=== PATIENT | female | born 1940 | race Caucasian/White ===

== ENCOUNTER 2017-06-13 18:15 | Observation (INO) ==
--- NOTE | 2017-06-13 18:42 | Emergency Department Note ---
Disposition Clinical Impression: Atrial fibrillation with RVR Chest pain Qualifiers: Chest pain type: precordial pain Qualified Code(s): R07.2 - Precordial pain Disposition: Admitted As Inpatient Condition: Good Referrals: Augustin Tsang MD [Primary Care Provider] - Forms: ED Satisfaction Letter Time of Disposition: 22:08 Chest Pain HPI - General Chief Complaint: ED Chest Pain Stated Complaint: pain across chest Time Seen by Provider: 06/13/17 18:30 Source: patient, EMS Limitations: no limitations - History of Present Illness HPI Narrative: 76-year-old female developed some discomfort in her throat that she described as a sore throat about 3 or 4 hours ago. It gradually moved down into her chest and shoulders bilaterally, more of a tightness. No shortness of breath. No palpitations. No nausea or diaphoresis. She eventually called EMS. EMS gave her nitroglycerin sublingual. She states the pain was a level VIII and is now a level I or 2. Pt complaint: chest pain Onset (ago): hour(s) Duration: constant Onset: during rest (4) Pain Location: substernal Severity scale (1-10): 3 Quality: tightness Pain Radiation: RUE (Shoulder), LUE, neck Improves with: nitroglycerin (Shoulder) Worsens with: nothing Context: history of DVT/PE Associated symptoms: Denies: nausea, vomiting, diaphoresis, dyspnea, palpitations, fever, cough Treatments prior to arrival chest pain: aspirin, other (Nitroglycerin) - Related Data Home Medications Medication Instructions Recorded Confirmed Lisinopril 20 mg PO DAILY 04/18/15 06/13/17 No Known Home Drugs 04/18/15 04/18/15 Omeprazole 20 mg PO DAILY 04/18/15 04/18/15 Warfarin 5 mg PO DAILY 04/18/15 06/13/17 Allergies Allergy/AdvReac Type Severity Reaction Status Date / Time Estrogens Allergy See Verified 04/18/15 10:41 Comments pseudoephedrine Allergy Hives Verified 04/18/15 10:41 [From Actifed] triprolidine [From Actifed] Allergy Hives Verified 04/18/15 10:41 azithromycin [From Zithromax] AdvReac Nausea Verified 04/18/15 10:41 All systems ED: reviewed and negative except as stated. Constitutional: Denies: fever, chills Eyes: Denies: eye discharge ENT ED: Reports: throat pain. Denies: ear pain Cardiovascular: Reports: chest pain. Denies: palpitations Respiratory: Denies: cough, dyspnea Gastrointestinal: Denies: abdominal pain, nausea, vomiting Genitourinary: Denies: urgency, dysuria, frequency Musculoskeletal: Reports: neck pain. Denies: back pain Integumentary: Denies: rash Chest Pain PMH - Past Medical History Medical history: Reports: arthritis, cardiomyopathy, CVA, DVT, GERD, hypertension, pulmonary embolus Surgical history: Reports: cholecystectomy, other Psychiatric history: Reports: no psych history - Social History Smoking Status: Never smoker Alcohol use: Reports: none Drug use: Reports: none Physical Exam - General Limitations: no limitations General appearance: alert, in no apparent distress - Head Head exam: atraumatic, normocephalic - Eye Eye exam: Present: PERRL, EOMI. Absent: scleral icterus, conjunctival injection - ENT ENT exam: normal oropharynx, mucous membranes moist - Neck Neck exam: Present: normal inspection, full ROM, trachea midline. Absent: tenderness, lymphadenopathy - Chest Chest inspection: Present: normal inspection, symmetric chest wall rise - Respiratory Respiratory exam: Present: normal lung sounds bilaterally. Absent: respiratory distress, wheezes - Cardiovascular Cardiovascular exam: Present: tachycardia, irregular rhythm. Absent: systolic murmur, diastolic murmur, gallop - Abdominal Exam Abdominal exam: Present: soft, Non-Tender, normal bowel sounds. Absent: organomegaly, mass - Extremities Exam Extremities exam: Present: normal inspection, full ROM, normal capillary refill. Absent: pedal edema, calf tenderness - Back Exam Back exam: Absent: CVA tenderness (R), CVA tenderness (L) - Neurological Exam Neurological exam: Present: alert, oriented X3. Absent: motor sensory deficit - Psychiatric Psychiatric exam: Present: normal affect, normal mood - Skin Skin exam: Present: warm, dry, intact, normal color Course - Reevaluation(s) Reevaluation #1: HR is down to 115. BP is 117/70. No chest pain. Time: 20:07 Reevaluation #2: Heart rate is still trending around 110 to 1:15. Her blood pressure is stable. She has been re-bolused with 15 mg of Cardizem and her drips been increased to 10 mg. I discussed admission with Dr. Cm and the patient. The patient's agreeable. Dr. Cm has accepted for admission. Per his request she will be given digoxin 0.25 mg IV. Time: 22:06 Vital Signs Temperature 98 F 06/13/17 18:19 Pulse Rate 147 06/13/17 18:19 Respiratory Rate 24 06/13/17 18:19 Blood Pressure 125/73 06/13/17 18:19 O2 Sat by Pulse Oximetry 90 06/13/17 18:19 Temperature 98 F 06/13/17 18:19 Pulse Rate 102 06/13/17 21:58 Respiratory Rate 16 06/13/17 21:58 Blood Pressure 98/61 06/13/17 21:58 O2 Sat by Pulse Oximetry 98 06/13/17 21:58 Oxygen Delivery Oxygen Delivery Nasal Cannula Chest Pain - MDM Narrative Medical decision making narrative: Frontal includes but is not limited to unstable angina, myocardial infarction, atrial fibrillation with RVR, atrial flutter with RVR, SVT, pulmonary embolus, congestive heart failure. The patient in atrial fibrillation with RVR. There are no old EKGs available for comparison. The patient does not remember any history of atrial fibrillation in the past. She is anticoagulated and is supratherapeutic. I believe she is on the Coumadin for a previous pulmonary embolus. She will be admitted, monitored, the Cardizem will be continued. - Lab Data Lab results reviewed: Yes I reviewed the patient's lab results. Result diagrams: 06/13/17 18:57 06/13/17 18:57 Lab Results 06/13/17 06/13/17 06/13/17 Range/Units 18:57 18:57 18:57 WBC 9.7 (4.3-11.1) K/mcL RBC 4.62 (3.82-4.97) M/mcL Hgb 12.2 (11.5-15.4) g/dL Hct 39.1 (35.3-44.9) % MCV 84.6 (83.0-100.0) fL MCH 26.4 L (28.0-33.3) pg MCHC 31.2 L (31.6-35.5) g/dL RDW 18.4 H (11.5-14.5) % Plt Count 41 L (140-400) K/mcL MPV 11.9 (9.4-12.4) fL Immature Gran % 0.1 (0-4) % Seg Neutrophils % 81.6 % Lymphocytes % 10.8 % Monocytes % 6.8 % Eosinophils % 0.6 % Basophils % 0.1 % Neutrophils # 7.9 (1.6-8.9) K/mcL Lymphocytes # 1.0 (0.6-4.6) K/mcL Monocytes # 0.7 (0.0-1.3) K/mcL Eosinophils # 0.1 (0.0-0.6) K/mcL Basophils # 0.0 (0.0-0.2) K/mcL Platelet Estimate Decreased L (Normal) PT 38.6 H (9.4-12.1) Seconds INR 3.5 D-Dimer (0-500) ng/mLFEU Sodium 138 (136-145) mEq/L Potassium 4.5 (3.5-4.5) mEq/L Chloride 108 (98-109) mEq/L Carbon Dioxide 21 (19-29) mEq/L BUN 34 H (7-20) mg/dL Creatinine 1.31 H (0.57-1.11) mg/dL Est GFR ( Amer) 48 L (> 60) Est GFR (Non-Af Amer) 39 L (> 60) BUN/Creatinine Ratio 26 (6-26) Glucose 112 H (70-99) mg/dL Calculated Osmolality 294 (280-300) Calcium 9.5 (8.6-10.8) mg/dL Total Bilirubin 0.3 (0.2-1.2) mg/dL AST 22 (5-34) Units/L ALT 20 (0-55) Units/L Alkaline Phosphatase 71 (38-126) Units/L Troponin I (0-0.03) ng/mL B-Natriuretic Peptide (0-100) pg/mL Serum Total Protein 7.4 (6.0-8.3) g/dL Albumin 3.6 (3.5-5.0) g/dL Globulin 3.8 H (2.4-3.5) g/dL Albumin/Globulin Ratio 0.9 L (1.1-2.2) 06/13/17 06/13/17 06/13/17 Range/Units 18:57 18:57 18:57 WBC (4.3-11.1) K/mcL RBC (3.82-4.97) M/mcL Hgb (11.5-15.4) g/dL Hct (35.3-44.9) % MCV (83.0-100.0) fL MCH (28.0-33.3) pg MCHC (31.6-35.5) g/dL RDW (11.5-14.5) % Plt Count (140-400) K/mcL MPV (9.4-12.4) fL Immature Gran % (0-4) % Seg Neutrophils % % Lymphocytes % % Monocytes % % Eosinophils % % Basophils % % Neutrophils # (1.6-8.9) K/mcL Lymphocytes # (0.6-4.6) K/mcL Monocytes # (0.0-1.3) K/mcL Eosinophils # (0.0-0.6) K/mcL Basophils # (0.0-0.2) K/mcL Platelet Estimate (Normal) PT (9.4-12.1) Seconds INR D-Dimer 466 (0-500) ng/mLFEU Sodium (136-145) mEq/L Potassium (3.5-4.5) mEq/L Chloride (98-109) mEq/L Carbon Dioxide (19-29) mEq/L BUN (7-20) mg/dL Creatinine (0.57-1.11) mg/dL Est GFR ( Amer) (> 60) Est GFR (Non-Af Amer) (> 60) BUN/Creatinine Ratio (6-26) Glucose (70-99) mg/dL Calculated Osmolality (280-300) Calcium (8.6-10.8) mg/dL Total Bilirubin (0.2-1.2) mg/dL AST (5-34) Units/L ALT (0-55) Units/L Alkaline Phosphatase (38-126) Units/L Troponin I 0.01 (0-0.03) ng/mL B-Natriuretic Peptide 504 H (0-100) pg/mL Serum Total Protein (6.0-8.3) g/dL Albumin (3.5-5.0) g/dL Globulin (2.4-3.5) g/dL Albumin/Globulin Ratio (1.1-2.2) 06/13/17 Range/Units 20:50 WBC (4.3-11.1) K/mcL RBC (3.82-4.97) M/mcL Hgb (11.5-15.4) g/dL Hct (35.3-44.9) % MCV (83.0-100.0) fL MCH (28.0-33.3) pg MCHC (31.6-35.5) g/dL RDW (11.5-14.5) % Plt Count (140-400) K/mcL MPV (9.4-12.4) fL Immature Gran % (0-4) % Seg Neutrophils % % Lymphocytes % % Monocytes % % Eosinophils % % Basophils % % Neutrophils # (1.6-8.9) K/mcL Lymphocytes # (0.6-4.6) K/mcL Monocytes # (0.0-1.3) K/mcL Eosinophils # (0.0-0.6) K/mcL Basophils # (0.0-0.2) K/mcL Platelet Estimate (Normal) PT (9.4-12.1) Seconds INR D-Dimer (0-500) ng/mLFEU Sodium (136-145) mEq/L Potassium (3.5-4.5) mEq/L Chloride (98-109) mEq/L Carbon Dioxide (19-29) mEq/L BUN (7-20) mg/dL Creatinine (0.57-1.11) mg/dL Est GFR ( Amer) (> 60) Est GFR (Non-Af Amer) (> 60) BUN/Creatinine Ratio (6-26) Glucose (70-99) mg/dL Calculated Osmolality (280-300) Calcium (8.6-10.8) mg/dL Total Bilirubin (0.2-1.2) mg/dL AST (5-34) Units/L ALT (0-55) Units/L Alkaline Phosphatase (38-126) Units/L Troponin I 0.01 (0-0.03) ng/mL B-Natriuretic Peptide (0-100) pg/mL Serum Total Protein (6.0-8.3) g/dL Albumin (3.5-5.0) g/dL Globulin (2.4-3.5) g/dL Albumin/Globulin Ratio (1.1-2.2) - Radiology Data Radiology results reviewed: Yes I reviewed the patient's radiology results. Impressions Chest X-Ray 06/13/17 18:37 IMPRESSION: The previously noted hiatal hernia is significantly larger. Cardiomegaly. Otherwise, stable chest D/ / Armani Wyman MD / Armani Wyman MD Interpreting Provider: Armani Wyman MD - EKG Data EKG attestation: Yes I reviewed and interpreted this EKG. EKG results narrative: Atrial fibrillation with RVR, rate of 125, right axis deviation, poor R-wave progression, cannot rule out age indeterminate anterior infarct. Nonspecific ST -T changes. Rhythm strip shows atrial fibrillation with a rate of 125, QRS 89 ms with no other ectopy as interpreted by me. No old EKG available for comparison. Critical Care Time Critical Care Time: Yes Total Critical Care Time: 30 Attestation: Rectal care time includes my initial evaluation, reassessment, review of laboratory, EKG, old EKG, chest x-ray. It includes consultation with the hospitalist for admission. It includes consultation with the family and patient at the bedside. No procedures were performed.
[2017-06-13 19:04] LABS: Basophils % 0.1 %; Eosinophils # 0.1 K/mcL (0.0-0.6); Eosinophils % 0.6 %; Hematocrit 39.1 % (35.3-44.9); Hemoglobin 12.2 g/dL (11.5-15.4); Immature Granulocytes % 0.1 % (0-4); Lymphocytes % 10.8 %; Mean Corpuscular HGB Conc 31.2 g/dL (31.6-35.5); Mean Corpuscular Hemoglobin 26.4 pg (28.0-33.3); Mean Corpuscular Volume 84.6 fL (83.0-100.0); Mean Platelet Volume 11.9 fL (9.4-12.4); Monocytes # 0.7 K/mcL (0.0-1.3); Monocytes % 6.8 %; Neutrophils # 7.9 K/mcL (1.6-8.9); Red Blood Count 4.62 M/mcL (3.82-4.97); Red Cell Distribution Width 18.4 % (11.5-14.5); Segmented Neutrophils % 81.6 %
[2017-06-13 19:06] LABS: Platelet Count 41 K/mcL (140-400)
[2017-06-13 19:13] LABS: INR 3.5; Prothrombin Time 38.6 Seconds (9.4-12.1)
[2017-06-13 19:25] LABS: Albumin 3.6 g/dL (3.5-5.0); Albumin/Globulin Ratio 0.9 (1.1-2.2); Bilirubin,Total 0.3 mg/dL (0.2-1.2); Calcium 9.5 mg/dL (8.6-10.8); Globulin 3.8 g/dL (2.4-3.5); Potassium 4.5 mEq/L (3.5-4.5); Total Protein 7.4 g/dL (6.0-8.3)
[2017-06-13 19:54] LABS: Platelet Estimate Decreased (Normal)
[2017-06-13] MEDS ORDERED: *HR* Digoxin 0.5 MG/2 ML AMPUL IVP ONE (22:06)
[2017-06-14] MEDS ORDERED: Ondansetron ODT 4 MG TAB.RAPDIS SL PRN (00:04)
[2017-06-14] MEDS ORDERED: Naloxone 0.4 MG/ML INJ IVP PRN (00:04)
[2017-06-14] MEDS ORDERED: traZODone 50 MG TABLET PO PRN (01:22)
[2017-06-14 06:28] LABS: INR 4.1
[2017-06-14 06:44] LABS: Prothrombin Time 45.4 Seconds (9.4-12.1)
[2017-06-14] MEDS: Acetaminophen 325 MG TABLET PO PRN ×2 (09:49→15:46)
--- NOTE | 2017-06-14 15:24 | Internal Med History&Physical ---
Date of Encounter: 06/14/17 Time of Encounter: 14:50 Assessment and Plan (1) Atrial fibrillation with RVR Current visit: Yes Status: Acute She was started on Cardizem drip through emergency room. Lanoxin was also started. Her ventricular rate has slowed so the Cardizem drip will be discontinued. Echocardiogram will be ordered. TSH will be checked (2) Azotemia Current visit: Yes Status: Acute New since 12/06/2016 when estimated GFR was greater than 60. We will give IV fluids and recheck labs in a.m. (3) Chest pain Current visit: Yes Status: Acute Repeat cardiac enzymes were ordered through emergency room. EKG showed low voltage, no evidence of ischemia. There appeared to be possible old anterior infarct Qualifiers: Chest pain type: precordial pain Qualified Code(s): R07.2 - Precordial pain Internal Medicine - H&P: HPI Chief complaint: Chest and neck discomfort Admitted From: Home Plans for Post Hospital Care: Home History of present illness: Ms. Velazco is a 76 year old female who came to the emergency room stating she had sudden onset of discomfort in her throat at approximately 1430 while at leisure. Over the next few minutes to hours the discomfort radiated to her neck , shoulder, jaw and chest area. She describes the chest discomfort as a "squeezing" sensation. She called her daughter who instructed her to call the squad. She was brought to emergency room and was found to have AF with RVR. She was started on a Cardizem drip and admitted to [facility] for ongoing care needs. She denies known previous episodes of atrial fibrillation. 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 She has been maintained on Coumadin. She was told in the past she had a "skipped beat" does not know details. She denies UT or heart failure. She states her chest and neck discomfort have essentially resolved. Past Med Surg Social Fam HX - Past Medical History Medical history: arthritis, cardiomyopathy, CVA, DVT, GERD, hypertension, pulmonary embolus Psychiatric history: no psych history - Past Surgical History Surgical History: cholecystectomy, other - Social History Smoking Status: Never smoker Smokeless Tobacco Status: No Alcohol use: none Drug use: none - Family History Mother Living Status: Hx Family Cardiac Disorders: Yes Father Living Status: Hx Family Cancer: Yes Internal Medicine - H&P: Meds Lisinopril [Zestril] 10 mg PO QDPC 06/14/17 [History] Mycophenolate Mofetil [Cellcept] 500 mg PO TID 06/14/17 [History] Omeprazole [PriLOSEC] 40 mg PO DAILY 06/14/17 [History] Warfarin [Coumadin] 5 mg PO QDPC 06/14/17 [History] predniSONE [PredniSONE] 10 mg PO QID 06/14/17 [History] 3 Allergy/AdvReac Type Severity Reaction Status Date / Time Estrogens Allergy See Verified 04/18/15 10:41 Comments pseudoephedrine Allergy Hives Verified 04/18/15 10:41 [From Actifed] triprolidine [From Actifed] Allergy Hives Verified 04/18/15 10:41 azithromycin [From Zithromax] AdvReac Nausea Verified 04/18/15 10:41 All Systems PM: A 10-system review of systems was performed and is negative for pertinent findings except as documented above in the HPI. Review of systems: Gen.: She states her weight has been stable past few months Cardiovascular: As per history of present illness Respiratory: She is a lifelong nonsmoker and has no known chronic lung disease GI: She has had cholecystectomy. She reports colonoscopy done in 2013 was unremarkable with repeat exam recommended in 3 years. She has diarrhea most mornings but it does not persist throughout the day. She has history of hiatal hernia. She denies disorders of her liver or exocrine pancreas : She had azotemia on blood work in the emergency room. She denies chronic kidney disease or other disorders of her kidneys or bladder. Neurologic: She states she had a "stroke" approximately 10 years ago without permanent neurologic deficit. She denies seizures or other neurologic problems Endocrine: She denies diabetes thyroid disease or hyperlipidemia Hematology/oncology: She has history of ITP and follows with a [employer] solicitor patent/oncologist. She is on prednisone and CellCept. She denies internal malignancies or other blood disorders Psychiatric: She denies anxiety depression or other mental health issues Musk skeletal: She has DJD. 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 She has not been diagnosed with gout. - Constitutional Vitals: Temp Pulse Resp BP Pulse Ox 98.2 F 80 18 106/58 97 06/14/17 14:00 06/14/17 14:00 06/14/17 14:00 06/14/17 14:00 06/14/17 14:00 Exam: Gen.: She is a well-developed well-nourished female who appears in no acute distress at present time HEENT: Head is atraumatic and normocephalic. Eyes: EOMI. There is no scleral icterus. Mouth: Mucosa is moist. Neck: Supple and nontender. There is no thyromegaly or adenopathy noted. Heart: Irregularly irregular with rate approximately 80/m. No murmurs are heard Lungs: No wheezes or crackles are heard. Abdomen: Soft and nontender. No masses or guarding are noted. Extremities: There is no cyanosis edema or clubbing noted. Dorsalis pedis and posterior tibial pulses are trace to 1+ palpable bilaterally. Neurologic: Mental status: She is talkative and a good historian. Cranial nerves: Smile is symmetric. Forehead wrinkles bilaterally. Tongue protrudes midline. EOMI. Motor: There is no pronator drift. Cerebellar: Finger to nose is intact bilaterally. Skin: Warm and dry Internal Med - H&P Results - Labs CBC & Chem 7: 06/13/17 18:57 06/13/17 18:57 Labs: Cardiac Enzymes 06/14/17 06/14/17 Range/Units 05:37 12:02 Troponin I 0.01 0.02 (0-0.03) ng/mL - VTE Reasons for not Prescribing Prophylaxis: Not indicated-Anticoagulated or INR therapeutic
[2017-06-14] MEDS: *HR* Digoxin 0.125 MG TABLET PO SCH (15:43)
[2017-06-14] MEDS: predniSONE 10 MG TABLET PO SCH (17:25)
--- NOTE | 2017-06-14 20:25 | Electrocardiograph Report ---
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
[2017-06-14] MEDS ORDERED: *HR* Propranolol 1 MG/ML VIAL IVP ONE (23:11)
[2017-06-14] MEDS ORDERED: *HR* Digoxin 0.5 MG/2 ML AMPUL ONE (23:25)
[2017-06-14] MEDS: *HR* Digoxin 0.5 MG/2 ML AMPUL IVP ONE ×2 (23:28→23:29)
[2017-06-15 06:07] LABS: Eosinophils % 0.4 %; Hematocrit 36.2 % (35.3-44.9); Hemoglobin 11.5 g/dL (11.5-15.4); Immature Granulocytes % 0.3 % (0-4); Lymphocytes # 1.2 K/mcL (0.6-4.6); Lymphocytes % 16.1 %; Mean Corpuscular HGB Conc 31.8 g/dL (31.6-35.5); Mean Corpuscular Hemoglobin 26.4 pg (28.0-33.3); Mean Platelet Volume 12.5 fL (9.4-12.4); Monocytes # 0.6 K/mcL (0.0-1.3); Monocytes % 8.2 %; Neutrophils # 5.5 K/mcL (1.6-8.9); Red Blood Count 4.36 M/mcL (3.82-4.97); Red Cell Distribution Width 17.8 % (11.5-14.5)
[2017-06-15 06:18] LABS: Platelet Count 34 K/mcL (140-400)
[2017-06-15 06:22] LABS: BUN/Creatinine Ratio 30 (6-26); Blood Urea Nitrogen 28 mg/dL (7-20); Calcium 9.3 mg/dL (8.6-10.8); Carbon Dioxide 20 mEq/L (19-29); Chloride 111 mEq/L (98-109); Glucose 104 mg/dL (70-99); Magnesium 1.8 mg/dL (1.6-2.6); Osmolality,Calculated 294 (280-300); Potassium 4.3 mEq/L (3.5-4.5); Sodium 139 mEq/L (136-145); eGFR For African Americans > 60 (> 60); eGFR For Non-African Americans 59 (> 60)
[2017-06-15 06:31] LABS: Digoxin 1.2 ng/mL (0.8-2.0)
[2017-06-15 06:47] LABS: Platelet Estimate Decreased (Normal)
[2017-06-15 07:15] VITALS: BP 118/78
[2017-06-15] MEDS: *HR* Digoxin 0.125 MG TABLET PO SCH (08:30)
[2017-06-15] MEDS: predniSONE 10 MG TABLET PO SCH (08:30)
--- NOTE | 2017-06-15 09:30 | Discharge Summary ---
Date of Encounter: 06/15/17 Time of Encounter: 09:20 - Discharge Diagnosis (1) Atrial fibrillation with RVR Priority: Primary Status: Acute (2) Azotemia Priority: Secondary Status: Acute (3) Chest pain Priority: Secondary Status: Resolved Qualifiers: Chest pain type: precordial pain Qualified Code(s): R07.2 - Precordial pain - Discharge Medications Prescriptions: Digoxin [Lanoxin] 0.125 mg PO DAILY #30 tablet Metoprolol XL (24 HR) Succ [Toprol XL] 25 mg PO DAILY #30 tab.er.24h Home Medications: Mycophenolate Mofetil [Cellcept] 500 mg PO TID 06/14/17 [History] Omeprazole [PriLOSEC] 40 mg PO DAILY 06/14/17 [History] Warfarin [Coumadin] 5 mg PO QDPC 06/14/17 [History] predniSONE [PredniSONE] 10 mg PO QID 06/14/17 [History] Digoxin [Lanoxin] 0.125 mg PO DAILY #30 tablet 06/15/17 [Rx] Metoprolol XL (24 HR) Succ [Toprol XL] 25 mg PO DAILY #30 tab.er.24h 06/15/17 [ Rx] Allergies/Adverse Reactions: 3 Allergy/AdvReac Type Severity Reaction Status Date / Time Estrogens Allergy See Verified 04/18/15 10:41 Comments pseudoephedrine Allergy Hives Verified 04/18/15 10:41 [From Actifed] triprolidine [From Actifed] Allergy Hives Verified 04/18/15 10:41 azithromycin [From Zithromax] AdvReac Nausea Verified 04/18/15 10:41 Procedures/tests Complete & Pending: Procedures Performed prior 72 hours Category Date Time Status EV echocardiogram Routine Y 06/14/17 15:16 Completed Date of admission: 06/13/17 22:16 Primary care physician: Augustin Tsang MD - Patient Status Disposition: Home, Self-Care Condition: Good Functional capacity at discharge: uses cane/walker Overall status at discharge: patient is progressing back to baseline - Discharge Instructions Follow Up With: Augustin Tsang MD [Primary Care Provider] - 1 week - Diet and Activity Activity: resume usual activities as tolerated Diet: advance to your usual diet Hospital course: Ms. Velazco is a 76 year old female who came to the emergency room stating she had sudden onset of discomfort in her throat at approximately 1430 while at leisure. Over the next few minutes to hours the discomfort radiated to her neck , shoulder, jaw and chest area. She describes the chest discomfort as a "squeezing" sensation. She called her daughter who instructed her to call the squad. She was brought to emergency room and was found to have AF with RVR. She was started on a Cardizem drip and admitted to [facility] for ongoing care needs. Initial orders were written by the emergency room physician. I saw her on June 14 and performed a history and physical. She was started on Cardizem drip through emergency room. Lanoxin was also given. When I saw her I discontinued the Cardizem drip and ordered additional Lanoxin. Her ventricular rate slowed. She received additional dose of Lanoxin and was given IV Inderal the evening of June 14 after she had a brief episode of RVR. Her heart rate had returned to satisfactory range on the morning of June 15. Repeat cardiac enzymes showed no evidence of myocardial damage. She felt stable for discharge home which I felt was reasonable. Lisinopril will be discontinued and she will be given Toprol-XL and Lanoxin at home to control her heart rate and blood pressure. Coumadin will be continued. An echocardiogram was ordered with results pending at time of this dictation. Her PCP Dr. Augustin Tsang can review the echocardiogram report with her. Azotemia improved with BUN and creatinine decreasing to 28 and 0.92 respectively with estimated GFR of 59 on the day of discharge. TSH returned normal at 1.313. She will follow with her PCP Dr. Augustin Tsang within 1 week. - Time Spent with Patient Total time spent providing and/or coordinating discharge services: - Constitutional Vitals: Temp Pulse Resp BP Pulse Ox 98.2 F 100 16 118/78 95 06/15/17 07:14 06/15/17 07:14 06/15/17 07:14 06/15/17 07:14 06/15/17 07:14 - VTE Reasons for not Prescribing Prophylaxis: Not indicated-Anticoagulated or INR therapeutic
== END 2017-06-15 11:30 | disposition home or self-care (01) ==
LOC: INPPIK 18:15 → EMEROOPIK 18:15 → INPPIK 23:45
PROVIDERS: ADMIT Internal Medicine; ATTEND Internal Medicine

== ENCOUNTER 2022-04-04 14:57 | Observation (INO) ==
[2022-04-04 15:43] LABS: Basophils % 0.1 %; Eosinophils # 0.2 K/mcL (0.0-0.6); Eosinophils % 1.9 %; Hematocrit 38.9 % (35.3-44.9); Hemoglobin 12.4 g/dL (11.5-15.4); Immature Granulocytes % 0.5 % (0-4); Lymphocytes # 1.7 K/mcL (0.6-4.6); Lymphocytes % 20.8 %; Mean Corpuscular HGB Conc 31.9 g/dL (31.6-35.5); Mean Corpuscular Hemoglobin 30.8 pg (28.0-33.3); Mean Corpuscular Volume 96.5 fL (83.0-100.0); Mean Platelet Volume 11.4 fL (9.4-12.4); Monocytes # 0.7 K/mcL (0.0-1.3); Monocytes % 7.9 %; Neutrophils # 5.7 K/mcL (1.6-8.9); Platelet Count 125 K/mcL (140-400); Red Blood Count 4.03 M/mcL (3.82-4.97); Red Cell Distribution Width 13.9 % (11.5-14.5); Segmented Neutrophils % 68.8 %; White Blood Count 8.3 K/mcL (4.3-11.1)
[2022-04-04 15:52] LABS: INR 2.9; Prothrombin Time 31.7 Seconds (9.4-12.1)
[2022-04-04 16:00] LABS: Alanine Aminotransferase 10 Units/L (7-52); Albumin 3.5 g/dL (3.5-5.7); Albumin/Globulin Ratio 0.9 (1.1-2.2); Alkaline Phosphatase 59 Units/L (34-104); Aspartate Amino Transferase 16 Units/L (13-39); BUN/Creatinine Ratio 22 (6-26); Bilirubin,Total 0.6 mg/dL (0.3-1.0); Blood Urea Nitrogen 38 mg/dL (8-23); Calcium 8.8 mg/dL (8.6-10.3); Carbon Dioxide 25 mEq/L (23-29); Chloride 106 mEq/L (98-107); Globulin 3.8 g/dL (2.4-3.5); Glucose 99 mg/dL (70-105); Magnesium 1.6 mg/dL (1.6-2.6); Osmolality,Calculated 299 (280-300); Phosphorous 3.2 mg/dL (2.7-4.5); Potassium 3.9 mEq/L (3.5-5.1); Sodium 140 mEq/L (136-145); Total Protein 7.3 g/dL (6.4-8.9); eGFR For African Americans 34 (> 60); eGFR For Non-African Americans 28 (> 60)
[2022-04-04 16:04] LABS: Troponin I < 0.03 ng/mL (< 0.04)
[2022-04-04 17:07] LABS: Bilirubin,Urine Negative (Negative); Blood,Urine Trace-intact (Negative); Clarity,Urine Slightly Cloudy (Clear); Color,Urine Yellow (Yellow); Glucose,Urine (UA) Normal (Normal); Ketones,Urine Negative (Negative); Leukocyte Esterase,Urine Small (Negative); Nitrite,Urine Negative (Negative); Protein,Urine 30 mg/dL (Neg-Trace); Urobilinogen,Urine Normal (Normal)
[2022-04-04 17:15] LABS: Bacteria,Urine Moderate per hpf (None-Few); Hyaline Casts,Urine Few per lpf (None Seen); RBC,Urine 0-3 per hpf (0-3); Squamous Epithelial Cell,Urine Few per hpf (None-Few)
[2022-04-04] MEDS ORDERED: Furosemide 20 MG/2 ML VIAL IVP ONE (17:49)
[2022-04-05] MEDS ORDERED: Naloxone 0.4 MG/ML INJ IVP PRN (01:37)
[2022-04-05 07:13] LABS: Basophils % 0.1 %; Eosinophils # 0.2 K/mcL (0.0-0.6); Hematocrit 39.3 % (35.3-44.9); Hemoglobin 12.6 g/dL (11.5-15.4); Immature Granulocytes % 0.4 % (0-4); Lymphocytes # 1.5 K/mcL (0.6-4.6); Lymphocytes % 16.2 %; Mean Corpuscular HGB Conc 32.1 g/dL (31.6-35.5); Mean Corpuscular Hemoglobin 30.6 pg (28.0-33.3); Mean Corpuscular Volume 95.4 fL (83.0-100.0); Mean Platelet Volume 11.3 fL (9.4-12.4); Monocytes # 0.7 K/mcL (0.0-1.3); Monocytes % 7.8 %; Neutrophils # 6.7 K/mcL (1.6-8.9); Platelet Count 112 K/mcL (140-400); Red Blood Count 4.12 M/mcL (3.82-4.97); Red Cell Distribution Width 13.6 % (11.5-14.5); Segmented Neutrophils % 73.5 %; White Blood Count 9.1 K/mcL (4.3-11.1)
[2022-04-05 07:53] LABS: Potassium 3.5 mEq/L (3.5-5.1)
[2022-04-05] MEDS: *HR* Digoxin 0.125 MG TABLET PO SCH (08:26)
[2022-04-05] MEDS: lisinopriL 10 MG TABLET PO SCH (08:26)
[2022-04-05] MEDS: Furosemide 20 MG TABLET PO SCH ×2 (08:26→21:35)
[2022-04-05] MEDS: Multivit/Ca/Min/Fe/FA 1 TAB TABLET PO SCH (08:26)
[2022-04-05] MEDS: polyethylene glycoL 3350 17 GM POWD.PACK PO SCH (08:26)
[2022-04-05] MEDS: Metoprolol XL (24 HR) Succ 50 MG TAB.ER.24H PO SCH (08:26)
[2022-04-05 12:49] LABS: INR 2.8; Prothrombin Time 30.8 Seconds (9.4-12.1)
[2022-04-05] MEDS: PROMACTA 25 MG PO SCH (14:01)
[2022-04-05] MEDS ORDERED: Warfarin perPT PO PRN (18:00)
[2022-04-05] MEDS ORDERED: *HR* Warfarin 5 MG TABLET PO SCH (18:00)
[2022-04-05] MEDS ORDERED: *HR* Warfarin 2.5 MG TABLET PO ONE (18:00)
[2022-04-06 07:52] LABS: Calcium 8.8 mg/dL (8.6-10.3); Magnesium 1.5 mg/dL (1.6-2.6); Potassium 3.4 mEq/L (3.5-5.1)
[2022-04-06 08:04] LABS: Basophils % 0.1 %; Eosinophils # 0.3 K/mcL (0.0-0.6); Eosinophils % 4.1 %; Hematocrit 39.6 % (35.3-44.9); Hemoglobin 12.6 g/dL (11.5-15.4); Immature Granulocytes % 0.4 % (0-4); Lymphocytes % 24.3 %; Mean Corpuscular HGB Conc 31.8 g/dL (31.6-35.5); Mean Corpuscular Hemoglobin 30.7 pg (28.0-33.3); Mean Corpuscular Volume 96.6 fL (83.0-100.0); Mean Platelet Volume 11.6 fL (9.4-12.4); Monocytes # 0.7 K/mcL (0.0-1.3); Platelet Count 118 K/mcL (140-400); Red Cell Distribution Width 13.8 % (11.5-14.5); Segmented Neutrophils % 62.1 %; White Blood Count 8.1 K/mcL (4.3-11.1)
[2022-04-06] MEDS: lisinopriL 10 MG TABLET PO SCH (08:05)
[2022-04-06] MEDS: Metoprolol XL (24 HR) Succ 50 MG TAB.ER.24H PO SCH (08:06)
[2022-04-06] MEDS: *HR* Digoxin 0.125 MG TABLET PO SCH (08:06)
[2022-04-06] MEDS: Multivit/Ca/Min/Fe/FA 1 TAB TABLET PO SCH (08:06)
[2022-04-06] MEDS: Furosemide 20 MG TABLET PO SCH (08:06)
[2022-04-06] MEDS: PROMACTA 25 MG PO SCH (08:07)
[2022-04-06] MEDS: polyethylene glycoL 3350 17 GM POWD.PACK PO SCH (08:12)
[2022-04-06 08:18] LABS: INR 2.9; Prothrombin Time 31.7 Seconds (9.4-12.1)
[2022-04-06] MEDS ORDERED: *HR* Warfarin 1 MG TABLET PO ONE (18:00)
[2022-04-07 06:33] LABS: Basophils % 0.1 %; Eosinophils # 0.3 K/mcL (0.0-0.6); Eosinophils % 4.1 %; Hematocrit 39.3 % (35.3-44.9); Hemoglobin 12.3 g/dL (11.5-15.4); Immature Granulocytes % 0.2 % (0-4); Lymphocytes # 1.6 K/mcL (0.6-4.6); Lymphocytes % 19.6 %; Mean Corpuscular HGB Conc 31.3 g/dL (31.6-35.5); Mean Corpuscular Hemoglobin 30.4 pg (28.0-33.3); Mean Corpuscular Volume 97.3 fL (83.0-100.0); Mean Platelet Volume 12.3 fL (9.4-12.4); Monocytes # 0.7 K/mcL (0.0-1.3); Neutrophils # 5.5 K/mcL (1.6-8.9); Platelet Count 107 K/mcL (140-400); Red Blood Count 4.04 M/mcL (3.82-4.97); Red Cell Distribution Width 13.7 % (11.5-14.5); White Blood Count 8.3 K/mcL (4.3-11.1)
[2022-04-07 06:35] LABS: INR 2.7; Prothrombin Time 30.1 Seconds (9.4-12.1)
[2022-04-07 06:48] LABS: Potassium 3.6 mEq/L (3.5-5.1)
[2022-04-07] MEDS: Metoprolol XL (24 HR) Succ 50 MG TAB.ER.24H PO SCH (07:48)
[2022-04-07] MEDS: lisinopriL 10 MG TABLET PO SCH (07:48)
[2022-04-07] MEDS: *HR* Digoxin 0.125 MG TABLET PO SCH (07:48)
[2022-04-07] MEDS: Multivit/Ca/Min/Fe/FA 1 TAB TABLET PO SCH (07:48)
[2022-04-07] MEDS: polyethylene glycoL 3350 17 GM POWD.PACK PO SCH (07:49)
[2022-04-07] MEDS: PROMACTA 25 MG PO SCH (07:49)
[2022-04-07] MEDS: Furosemide 20 MG TABLET PO SCH (08:03)
[2022-04-07] MEDS ORDERED: *HR* Warfarin 2 MG TABLET PO ONE (18:00)
[2022-04-08 07:57] LABS: Basophils % 0.1 %; Eosinophils # 0.2 K/mcL (0.0-0.6); Eosinophils % 2.3 %; Hematocrit 40.3 % (35.3-44.9); Hemoglobin 12.9 g/dL (11.5-15.4); Immature Granulocytes % 0.5 % (0-4); Lymphocytes # 1.6 K/mcL (0.6-4.6); Mean Corpuscular Volume 96.9 fL (83.0-100.0); Monocytes # 0.9 K/mcL (0.0-1.3); Monocytes % 9.7 %; Neutrophils # 6.1 K/mcL (1.6-8.9); Platelet Count 120 K/mcL (140-400); Red Blood Count 4.16 M/mcL (3.82-4.97); Red Cell Distribution Width 13.8 % (11.5-14.5); Segmented Neutrophils % 69.4 %; White Blood Count 8.8 K/mcL (4.3-11.1)
[2022-04-08 08:06] LABS: INR 2.5; Prothrombin Time 27.4 Seconds (9.4-12.1)
[2022-04-08] MEDS: polyethylene glycoL 3350 17 GM POWD.PACK PO SCH (08:13)
[2022-04-08 08:19] LABS: Calcium 8.8 mg/dL (8.6-10.3); Magnesium 1.7 mg/dL (1.6-2.6); Potassium 3.7 mEq/L (3.5-5.1)
[2022-04-08] MEDS: Furosemide 20 MG TABLET PO SCH (08:36)
[2022-04-08] MEDS: PROMACTA 25 MG PO SCH (08:36)
[2022-04-08] MEDS: Metoprolol XL (24 HR) Succ 50 MG TAB.ER.24H PO SCH (08:37)
[2022-04-08] MEDS: lisinopriL 10 MG TABLET PO SCH (08:37)
[2022-04-08] MEDS: Multivit/Ca/Min/Fe/FA 1 TAB TABLET PO SCH (08:37)
[2022-04-08] MEDS: *HR* Digoxin 0.125 MG TABLET PO SCH (08:37)
[2022-04-08 09:16] LABS: Platelet Estimate Slight Decrease (Normal)
[2022-04-08] MEDS: Acetaminophen 325 MG TABLET PO PRN (12:14)
[2022-04-08] MEDS: Cefdinir 300 MG CAPSULE PO SCH ×2 (12:14→21:10)
[2022-04-08] MEDS ORDERED: *HR* Warfarin 2 MG TABLET PO ONE (18:00)
[2022-04-08] MEDS: Melatonin 3 MG TABLET PO SCH (21:10)
[2022-04-09] MEDS: Acetaminophen 325 MG TABLET PO PRN ×2 (02:15→17:32)
[2022-04-09 07:39] LABS: Basophils % 0.1 %; Eosinophils # 0.2 K/mcL (0.0-0.6); Hematocrit 39.2 % (35.3-44.9); Hemoglobin 12.4 g/dL (11.5-15.4); Immature Granulocytes % 0.4 % (0-4); Lymphocytes # 1.7 K/mcL (0.6-4.6); Lymphocytes % 20.5 %; Mean Corpuscular HGB Conc 31.6 g/dL (31.6-35.5); Mean Corpuscular Hemoglobin 30.7 pg (28.0-33.3); Mean Platelet Volume 10.7 fL (9.4-12.4); Monocytes # 0.8 K/mcL (0.0-1.3); Monocytes % 9.6 %; Neutrophils # 5.6 K/mcL (1.6-8.9); Platelet Count 125 K/mcL (140-400); Red Blood Count 4.04 M/mcL (3.82-4.97); Red Cell Distribution Width 13.6 % (11.5-14.5); Segmented Neutrophils % 67.4 %; White Blood Count 8.4 K/mcL (4.3-11.1)
[2022-04-09 07:55] LABS: INR 2.2; Prothrombin Time 24.7 Seconds (9.4-12.1)
[2022-04-09 08:12] LABS: Calcium 8.8 mg/dL (8.6-10.3); Magnesium 1.9 mg/dL (1.6-2.6); Potassium 3.9 mEq/L (3.5-5.1)
[2022-04-09] MEDS: lisinopriL 10 MG TABLET PO SCH (10:14)
[2022-04-09] MEDS: Furosemide 20 MG TABLET PO SCH (10:14)
[2022-04-09] MEDS: Metoprolol XL (24 HR) Succ 50 MG TAB.ER.24H PO SCH (10:14)
[2022-04-09] MEDS: Multivit/Ca/Min/Fe/FA 1 TAB TABLET PO SCH (10:15)
[2022-04-09] MEDS: Cefdinir 300 MG CAPSULE PO SCH ×2 (10:15→20:43)
[2022-04-09] MEDS: *HR* Digoxin 0.125 MG TABLET PO SCH (10:15)
[2022-04-09] MEDS: polyethylene glycoL 3350 17 GM POWD.PACK PO SCH (10:17)
[2022-04-09] MEDS: PROMACTA 25 MG PO SCH (15:38)
[2022-04-09] MEDS ORDERED: *HR* Warfarin 5 MG TABLET PO ONE (18:00)
[2022-04-09] MEDS: Melatonin 3 MG TABLET PO SCH (20:43)
[2022-04-10 07:05] LABS: Basophils % 0.1 %; Eosinophils # 0.4 K/mcL (0.0-0.6); Hematocrit 37.5 % (35.3-44.9); Hemoglobin 11.9 g/dL (11.5-15.4); Immature Granulocytes % 0.4 % (0-4); Lymphocytes # 1.6 K/mcL (0.6-4.6); Lymphocytes % 17.5 %; Mean Corpuscular HGB Conc 31.7 g/dL (31.6-35.5); Mean Corpuscular Hemoglobin 30.7 pg (28.0-33.3); Mean Corpuscular Volume 96.9 fL (83.0-100.0); Mean Platelet Volume 11.1 fL (9.4-12.4); Monocytes # 0.8 K/mcL (0.0-1.3); Monocytes % 8.9 %; Neutrophils # 6.4 K/mcL (1.6-8.9); Platelet Count 117 K/mcL (140-400); Red Blood Count 3.87 M/mcL (3.82-4.97); Red Cell Distribution Width 13.8 % (11.5-14.5); Segmented Neutrophils % 69.1 %; White Blood Count 9.3 K/mcL (4.3-11.1)
[2022-04-10 07:14] LABS: INR 2.1; Prothrombin Time 23.7 Seconds (9.4-12.1)
[2022-04-10 07:26] LABS: Calcium 8.8 mg/dL (8.6-10.3); Magnesium 1.9 mg/dL (1.6-2.6); Potassium 4.2 mEq/L (3.5-5.1)
[2022-04-10] MEDS: Multivit/Ca/Min/Fe/FA 1 TAB TABLET PO SCH (08:09)
[2022-04-10] MEDS: Furosemide 20 MG TABLET PO SCH (08:09)
[2022-04-10] MEDS: Metoprolol XL (24 HR) Succ 50 MG TAB.ER.24H PO SCH (08:10)
[2022-04-10] MEDS: Cefdinir 300 MG CAPSULE PO SCH (08:10)
[2022-04-10] MEDS: lisinopriL 10 MG TABLET PO SCH (08:10)
[2022-04-10] MEDS: *HR* Digoxin 0.125 MG TABLET PO SCH (08:10)
[2022-04-10] MEDS: PROMACTA 25 MG PO SCH (08:10)
[2022-04-10] MEDS: polyethylene glycoL 3350 17 GM POWD.PACK PO SCH (08:48)
[2022-04-10] MEDS ORDERED: *HR* Warfarin 5 MG TABLET PO ONE (18:00)
[2022-04-10] MEDS: Melatonin 3 MG TABLET PO SCH (20:02)
[2022-04-10] MEDS: Acetaminophen 325 MG TABLET PO PRN (23:37)
[2022-04-11 06:07] LABS: Basophils % 0.1 %; Eosinophils # 0.4 K/mcL (0.0-0.6); Eosinophils % 4.6 %; Hematocrit 40.2 % (35.3-44.9); Hemoglobin 12.7 g/dL (11.5-15.4); Immature Granulocytes % 0.5 % (0-4); Lymphocytes # 2.2 K/mcL (0.6-4.6); Lymphocytes % 25.4 %; Mean Corpuscular HGB Conc 31.6 g/dL (31.6-35.5); Mean Corpuscular Hemoglobin 30.7 pg (28.0-33.3); Mean Corpuscular Volume 97.1 fL (83.0-100.0); Mean Platelet Volume 10.9 fL (9.4-12.4); Monocytes # 0.6 K/mcL (0.0-1.3); Monocytes % 7.4 %; Neutrophils # 5.3 K/mcL (1.6-8.9); Platelet Count 133 K/mcL (140-400); Red Blood Count 4.14 M/mcL (3.82-4.97); Red Cell Distribution Width 13.5 % (11.5-14.5); White Blood Count 8.5 K/mcL (4.3-11.1)
[2022-04-11 06:15] LABS: Prothrombin Time 21.7 Seconds (9.4-12.1)
[2022-04-11 06:26] LABS: Calcium 9.1 mg/dL (8.6-10.3); Potassium 4.5 mEq/L (3.5-5.1)
[2022-04-11] MEDS ORDERED: Metoprolol XL (24 HR) Succ 50 MG TAB.ER.24H PO SCH (09:00)
[2022-04-11] MEDS ORDERED: Cefdinir 300 MG CAPSULE PO SCH (09:00)
[2022-04-11] MEDS: PROMACTA 25 MG PO SCH (09:54)
[2022-04-11] MEDS: Furosemide 20 MG TABLET PO SCH (09:55)
[2022-04-11] MEDS: Multivit/Ca/Min/Fe/FA 1 TAB TABLET PO SCH (09:55)
[2022-04-11] MEDS: lisinopriL 10 MG TABLET PO SCH (09:55)
[2022-04-11] MEDS: polyethylene glycoL 3350 17 GM POWD.PACK PO SCH (09:55)
[2022-04-11] MEDS: *HR* Digoxin 0.125 MG TABLET PO SCH (09:55)
[2022-04-11] MEDS ORDERED: *HR* Warfarin 5 MG TABLET PO ONE (18:00)
[2022-04-11 19:33] VITALS: BP 144/66; PULSE 69; RESP 18; TEMP 97.7; O2SAT 96
[2022-04-11] MEDS: Melatonin 3 MG TABLET PO SCH (20:10)
== END 2022-04-11 22:13 | disposition other institution (70) ==
LOC: INPPIK 14:57 → EMEROOPIK 14:57 → INPPIK 04-05 01:06
PROVIDERS: ADMIT Internal Medicine; ATTEND Internal Medicine

== ENCOUNTER 2022-04-11 16:38 | Inpatient (IN) ==
[2022-04-11] MEDS ORDERED: Acetaminophen 325 MG TABLET PO PRN (18:53)
[2022-04-11] MEDS ORDERED: Warfarin perPT PO PRN (22:51)
[2022-04-11] MEDS: Cefdinir 300 MG CAPSULE PO SCH (23:01)
[2022-04-11] MEDS: Furosemide 20 MG TABLET PO SCH (23:01)
[2022-04-12] MEDS: Ondansetron ODT 4 MG TAB.RAPDIS SL PRN (02:37)
[2022-04-12 05:08] LABS: Basophils % 0.1 %; Eosinophils # 0.3 K/mcL (0.0-0.6); Eosinophils % 3.8 %; Hematocrit 38.1 % (35.3-44.9); Hemoglobin 11.9 g/dL (11.5-15.4); Immature Granulocytes % 0.5 % (0-4); Lymphocytes # 1.4 K/mcL (0.6-4.6); Lymphocytes % 19.3 %; Mean Corpuscular HGB Conc 31.2 g/dL (31.6-35.5); Mean Corpuscular Hemoglobin 30.3 pg (28.0-33.3); Mean Corpuscular Volume 96.9 fL (83.0-100.0); Monocytes # 0.6 K/mcL (0.0-1.3); Monocytes % 7.5 %; Platelet Count 115 K/mcL (140-400); Red Blood Count 3.93 M/mcL (3.82-4.97); Red Cell Distribution Width 13.4 % (11.5-14.5); Segmented Neutrophils % 68.8 %; White Blood Count 7.3 K/mcL (4.3-11.1)
[2022-04-12 05:49] LABS: Calcium 8.8 mg/dL (8.6-10.3); Potassium 6.1 mEq/L (3.5-5.1)
[2022-04-12] MEDS: Furosemide 20 MG TABLET PO SCH ×2 (08:43→16:38)
[2022-04-12] MEDS: *HR* Digoxin 0.125 MG TABLET PO SCH (08:43)
[2022-04-12] MEDS: Cefdinir 300 MG CAPSULE PO SCH ×2 (08:43→19:52)
[2022-04-12] MEDS: Multivit/Ca/Min/Fe/FA 1 TAB TABLET PO SCH (08:43)
[2022-04-12] MEDS: lisinopriL 20 MG TABLET PO SCH (08:43)
[2022-04-12] MEDS: polyethylene glycoL 3350 17 GM POWD.PACK PO SCH (08:44)
[2022-04-12] MEDS ORDERED: Metoprolol XL (24 HR) Succ 50 MG TAB.ER.24H PO SCH (09:00)
[2022-04-12 09:50] LABS: INR 1.7; Prothrombin Time 19.2 Seconds (9.4-12.1)
[2022-04-12] MEDS: ELTROMBOPAG OLAMINE 25 MG PO SCH (10:20)
[2022-04-12 17:09] LABS: Calcium 9.2 mg/dL (8.6-10.3); Digoxin 1.2 ng/mL (0.8-2.0); Potassium 4.8 mEq/L (3.5-5.1)
[2022-04-12] MEDS ORDERED: *HR* Warfarin 3 MG TABLET PO ONE (18:00)
[2022-04-12] MEDS: Melatonin 3 MG TABLET PO PRN (22:31)
[2022-04-13 06:33] LABS: INR 1.7; Prothrombin Time 19.4 Seconds (9.4-12.1)
[2022-04-13] MEDS: *HR* Digoxin 0.125 MG TABLET PO SCH (08:38)
[2022-04-13] MEDS: Cefdinir 300 MG CAPSULE PO SCH (08:38)
[2022-04-13] MEDS: lisinopriL 20 MG TABLET PO SCH (08:39)
[2022-04-13] MEDS: Multivit/Ca/Min/Fe/FA 1 TAB TABLET PO SCH (08:39)
[2022-04-13] MEDS: Furosemide 20 MG TABLET PO SCH ×2 (08:39→16:04)
[2022-04-13] MEDS: ELTROMBOPAG OLAMINE 25 MG PO SCH (08:40)
[2022-04-13] MEDS: Metoprolol XL (24 HR) Succ 50 MG TAB.ER.24H PO SCH (08:41)
[2022-04-13] MEDS: polyethylene glycoL 3350 17 GM POWD.PACK PO SCH (08:41)
[2022-04-13] MEDS ORDERED: *HR* Warfarin 3 MG TABLET PO ONE (18:00)
[2022-04-14] MEDS: polyethylene glycoL 3350 17 GM POWD.PACK PO SCH (07:55)
[2022-04-14] MEDS: Multivit/Ca/Min/Fe/FA 1 TAB TABLET PO SCH (07:55)
[2022-04-14] MEDS: Metoprolol XL (24 HR) Succ 50 MG TAB.ER.24H PO SCH (07:55)
[2022-04-14] MEDS: lisinopriL 20 MG TABLET PO SCH (07:56)
[2022-04-14] MEDS: Furosemide 20 MG TABLET PO SCH ×2 (07:56→17:21)
[2022-04-14] MEDS: ELTROMBOPAG OLAMINE 25 MG PO SCH (07:59)
[2022-04-14] MEDS: *HR* Digoxin 0.125 MG TABLET PO SCH (08:01)
[2022-04-14 08:03] LABS: Prothrombin Time 22.5 Seconds (9.4-12.1)
[2022-04-14] MEDS ORDERED: Nitroglycerin 0.4 MG TAB.SUBL SL PRN (12:22)
[2022-04-14] MEDS: Aspirin Enteric Coated 81 MG Tablet PO SCH (13:56)
[2022-04-14] MEDS: Simethicone 80 MG TAB.CHEW PO PRN ×2 (13:57→20:00)
[2022-04-14] MEDS ORDERED: *HR* Warfarin 5 MG TABLET PO ONE (18:00)
[2022-04-14] MEDS: Ondansetron ODT 4 MG TAB.RAPDIS SL PRN (20:00)
[2022-04-15] MEDS: Melatonin 3 MG TABLET PO PRN ×2 (01:11→22:07)
[2022-04-15] MEDS: Ondansetron ODT 4 MG TAB.RAPDIS SL PRN (05:50)
[2022-04-15 06:57] LABS: INR 2.1; Prothrombin Time 23.2 Seconds (9.4-12.1)
[2022-04-15] MEDS: Aspirin Enteric Coated 81 MG Tablet PO SCH (08:25)
[2022-04-15] MEDS: Furosemide 20 MG TABLET PO SCH ×2 (08:26→16:37)
[2022-04-15] MEDS: ELTROMBOPAG OLAMINE 25 MG PO SCH (08:26)
[2022-04-15] MEDS: lisinopriL 20 MG TABLET PO SCH (08:26)
[2022-04-15] MEDS: polyethylene glycoL 3350 17 GM POWD.PACK PO SCH (08:26)
[2022-04-15] MEDS: Multivit/Ca/Min/Fe/FA 1 TAB TABLET PO SCH (08:26)
[2022-04-15] MEDS: Metoprolol XL (24 HR) Succ 50 MG TAB.ER.24H PO SCH (08:26)
[2022-04-15] MEDS ORDERED: *HR* Warfarin 5 MG TABLET PO ONE (18:00)
[2022-04-16 07:51] LABS: INR 2.4; Prothrombin Time 26.2 Seconds (9.4-12.1)
[2022-04-16] MEDS: Metoprolol XL (24 HR) Succ 50 MG TAB.ER.24H PO SCH (09:00)
[2022-04-16] MEDS: lisinopriL 20 MG TABLET PO SCH (09:00)
[2022-04-16] MEDS: Furosemide 20 MG TABLET PO SCH ×2 (09:00→16:41)
[2022-04-16] MEDS: Aspirin Enteric Coated 81 MG Tablet PO SCH (09:00)
[2022-04-16] MEDS: Multivit/Ca/Min/Fe/FA 1 TAB TABLET PO SCH (09:00)
[2022-04-16] MEDS: ELTROMBOPAG OLAMINE 25 MG PO SCH (09:01)
[2022-04-16] MEDS: polyethylene glycoL 3350 17 GM POWD.PACK PO SCH (11:37)
[2022-04-16] MEDS ORDERED: *HR* Warfarin 2.5 MG TABLET PO ONE (18:00)
[2022-04-16 19:56] VITALS: RESP 16
[2022-04-16] MEDS: Melatonin 3 MG TABLET PO PRN (20:46)
[2022-04-16] MEDS: Simethicone 80 MG TAB.CHEW PO PRN (21:29)
[2022-04-17 06:31] LABS: INR 2.1; Prothrombin Time 23.7 Seconds (9.4-12.1)
[2022-04-17 07:23] VITALS: BP 136/78; PULSE 66; TEMP 98; O2SAT 96
[2022-04-17] MEDS: Metoprolol XL (24 HR) Succ 50 MG TAB.ER.24H PO SCH (09:08)
[2022-04-17] MEDS: Furosemide 20 MG TABLET PO SCH (09:08)
[2022-04-17] MEDS: Aspirin Enteric Coated 81 MG Tablet PO SCH (09:08)
[2022-04-17] MEDS: polyethylene glycoL 3350 17 GM POWD.PACK PO SCH (09:09)
[2022-04-17] MEDS: Multivit/Ca/Min/Fe/FA 1 TAB TABLET PO SCH (09:09)
[2022-04-17] MEDS: lisinopriL 20 MG TABLET PO SCH (09:09)
[2022-04-17] MEDS: ELTROMBOPAG OLAMINE 25 MG PO SCH (09:10)
[2022-04-17] MEDS ORDERED: *HR* Warfarin 5 MG TABLET PO ONE (18:00)
== END 2022-04-17 12:58 | disposition home health service (06) | DRG 690 ==
LOC: INPPIK 22:28
PROVIDERS: ADMIT Family Medicine; ATTEND Family Medicine